=== PATIENT | female | born 1995 | race Caucasian/White ===

== ENCOUNTER 2018-11-28 08:43 | Observation (INO) | payer BC, OTHER ==
[~2018-11-28 08:43] MED LIST: SUCCINYLCHOLINE CHLORIDE INJ 200 MG/10 ML VIAL ONE
[2018-11-28] MEDS ORDERED: MIDAZOLAM 2 MG/2 ML INJ ONE ×2 (09:28→10:46)
[2018-11-28] MEDS ORDERED: FAMOTIDINE INJ/PF 20 MG/2 ML SDV IV ONE (09:30)
[2018-11-28] MEDS ORDERED: METOCLOPRAMIDE HCL INJ/PF 10 MG/2 ML SDV ONE (09:31)
[2018-11-28 09:39] LABS: APPEARANCE,URINE CLOUDY; BILIRUBIN,URINE NEGATIVE (NEGATIVE); COLOR,URINE YELLOW; GLUCOSE, URINE NEGATIVE (NEGATIVE); KETONES,URINE NEGATIVE (NEGATIVE); LEUKOCYTE ESTERASE,URINE NEGATIVE (NEGATIVE); NITRITE,URINE NEGATIVE (NEGATIVE); PROTEIN,URINE NEGATIVE (NEGATIVE); URINE SPECIFIC GRAVITY 1.024; UROBILINOGEN,URINE NEGATIVE mg/dL (<2.0)
[2018-11-28 10:08] LABS: HEMATOCRIT 37.7 % (36.0-47.0); HEMOGLOBIN 13.2 g/dL (12.0-15.5); MEAN CORPUSCULAR HEMOGLOBIN 31.7 pg (27.0-33.4); MEAN CORPUSCULAR HGB CONC 35.1 g/dL (32.0-36.0); MEAN CORPUSCULAR VOLUME 91 fl (80-97); PLATELET COUNT 212 10^3/uL (150-450); RED BLOOD COUNT 4.16 10^6/uL (3.72-5.28); RED CELL DISTRIBUTION WIDTH 13.4 % (11.5-14.0); WHITE BLOOD COUNT 7.1 10^3/uL (4.0-10.5)
[2018-11-28] MEDS ORDERED: MORPHINE SULFATE 10 MG/ML INJ IV PRN (10:11)
[2018-11-28] MEDS ORDERED: PROMETHAZINE HCL INJ 25 MG/1 ML VIAL IV PRN ×2 (10:11)
[2018-11-28] MEDS ORDERED: FENTANYL CITRATE INJ/PF 100 MCG/2 ML AMPUL IV PRN ×3 (10:11)
[2018-11-28] MEDS ORDERED: DIPHENHYDRAMINE HCL 50 MG/ML VIAL IV PRN (10:11)
[2018-11-28] MEDS ORDERED: MEPERIDINE HCL/PF INJ 25 MG/1 ML DISP.SYRIN IV PRN (10:11)
[2018-11-28] MEDS ORDERED: LIDOCAINE 2% INJ-PF (20 MG/ML) 10 ML AMPUL ONE (10:46)
[2018-11-28] MEDS ORDERED: PROMETHAZINE HCL INJ 25 MG/1 ML VIAL ONE (10:46)
[2018-11-28] MEDS ORDERED: FENTANYL CITRATE INJ/PF 100 MCG/2 ML AMPUL ONE (10:46)
[2018-11-28] MEDS ORDERED: DEXAMETHASONE SOD PHOSPHATE INJ 4 MG/1 ML VIAL ONE (10:46)
[2018-11-28] MEDS ORDERED: HYDROMORPHONE HCL INJ/PF 2 MG/ML AMPULE ONE (10:47)
[2018-11-28] MEDS ORDERED: PROPOFOL INJ 200 MG/20 ML VIAL IV ONE (10:47)
[2018-11-28] MEDS ORDERED: ACETAMINOPHEN 1,000 MG/100 ML RTUPB IV ONE (10:47)
[2018-11-28] MEDS ORDERED: ONDANSETRON HCL INJ/PF 4 MG/2 ML SDV ONE (10:47)
[2018-11-28] MEDS ORDERED: MISOPROSTOL 0.2 MG TABLET ONE (11:10)
[2018-11-28] MEDS ORDERED: OXYTOCIN 10 UNIT/ML VIAL ONE ×2 (11:11→11:13)
[2018-11-28] MEDS: MEPERIDINE HCL/PF INJ 25 MG/1 ML DISP.SYRIN ONE ×2 (12:00→12:10)
[2018-11-28] MEDS ORDERED: OXYCODONE-ACETAMINOPHEN 5-325 MG TABLET PO PRN ×2 (12:26→12:27)
[2018-11-28] MEDS ORDERED: MORPHINE SULFATE 10 MG/ML INJ IM PRN (12:26)
[2018-11-28] MEDS ORDERED: IBUPROFEN 800 MG TABLET PO PRN (12:26)
[2018-11-28 12:29] LABS: HEMATOCRIT 34.5 % (36.0-47.0); HEMOGLOBIN 12.1 g/dL (12.0-15.5); MEAN CORPUSCULAR HEMOGLOBIN 31.5 pg (27.0-33.4); MEAN CORPUSCULAR VOLUME 90 fl (80-97); PLATELET COUNT 227 10^3/uL (150-450); RED BLOOD COUNT 3.84 10^6/uL (3.72-5.28); RED CELL DISTRIBUTION WIDTH 13.2 % (11.5-14.0); WHITE BLOOD COUNT 12.6 10^3/uL (4.0-10.5)
--- NOTE | 2018-11-28 12:37 | OPERATIVE REPORT E ---
Operative Report NAME: SLOANE SHAH : 1995 AGE: 23Y DATE OF SURGERY: 11/28/2018 ROOM: PREOPERATIVE DIAGNOSIS: Molar . POSTOPERATIVE DIAGNOSIS: Molar . OPERATION: Suction D and C. SURGEON: BETSEY ROLLE M.D. ANESTHESIA: Meghana Washington M.D. with general. FINDINGS: Uterus sounded to approximately 12.5 cm. Copious amounts of obvious molar tissue. COMPLICATIONS: None. ESTIMATED BLOOD LOSS: 1500 mL. SPECIMENS REMOVED: Products of conception. PROCEDURE IN DETAIL: The patient was taken to the operating room, prepared, and draped in a normal sterile fashion in the dorsal lithotomy position. Under sterile conditions an in-and-out cath was performed of approximately 30 mL of clear urine. A sterile speculum was placed into the vagina and the cervix was grasped on the anterior lip with a single-tooth tenaculum. The uterus was then sounded to approximately 12.5 cm with the uterine sound. We then dilated the cervix up to a 27 [place] and a 12 mm curved curette was used to perform the suction D and C. Canisters needed to be changed as the first canister did fill. Between canister changing I performed a sharp curettage with a large curette and obtained more grape-like tissue that was consistent with a molar . Once the canister was changed the curved curette was then introduced once more and I continued with the suction of the contents. Once I was getting minimal tissue back I then sharply curettaged once more and had a good 360 degrees of grit all the way around. I did suction a couple more times just to ensure that the tissue was completely evacuated from the uterus and sharp curettaged once more, and the tactile sensation was the same with sharp curettage felt all the way around and no further tissue was obtained. The patient did have bleeding that was consistent with a D and C for a molar . Pitocin was used intraoperatively to help with uterine atony and 1000 mcg of Cytotec was placed per rectum to help with this as well. At the conclusion of the procedure the bleeding was very, very minimal from the cervical os and seemed to be more external than internal. The patient tolerated the procedure well. Sponge, lap, and needle counts were correct x2. The patient was taken to recovery in stable condition. DICTATING PHYSICIAN: BETSEY ROLLE M.D. [id number] PHY#: [id number] ID: [id number] JOB#: [id number] ACCT: [id number] cc:BETSEY ROLLE M.D. >
[2018-11-28 13:01] LABS: ALANINE AMINOTRANSFERASE 22 U/L (9-52); ALBUMIN 3.3 g/dL (3.5-5.0); ALKALINE PHOSPHATASE 43 U/L (38-126); ANION GAP 7 (5-19); ASPARTATE AMINO TRANSFERASE 19 U/L (14-36); BILIRUBIN,DIRECT 0.2 mg/dL (0.0-0.4); BILIRUBIN,TOTAL 0.4 mg/dL (0.2-1.3); BLOOD UREA NITROGEN 9 mg/dL (7-20); CALCIUM 8.6 mg/dL (8.4-10.2); CARBON DIOXIDE 20 mmol/L (22-30); CHLORIDE 109 mmol/L (98-107); GLUCOSE 95 mg/dL (75-110); SODIUM 136.4 mmol/L (137-145); TOTAL PROTEIN 5.6 g/dL (6.3-8.2)
[2018-11-28] MEDS ORDERED: LABETALOL HCL INJ 20 MG/4 ML DISP.SYRIN IV ONE (13:08)
[2018-11-28 13:18] LABS: FREE T4 (FREE THYROXINE) 1.81 ng/dL (0.78-2.19)
[2018-11-28 13:32] LABS: THYROID STIMULATING HORMONE 2.88 uIU/mL (0.47-4.68)
--- NOTE | 2018-11-28 17:07 | PDOC CONSULTATION ---
Consultation Consult Date: 11/28/18 Attending physician:: BETSEY ROLLE Consult reason:: tachycardia History of Present Illness Admission Date/PCP: GLENN SOLIS History of Present Illness: SLOANE SHAH is a 23 year old healthy female, no significant past medical history who went for a D&C earlier today for a molar . After procedure, patient's heart rate went up to the 180s reportedly hence this consult. Patient had 1500 cc blood loss during procedure. Rhythm during peak tachycardic event was reportedly sinus tach. She did not drop her blood pressures and was asymptomatic. No desaturation in the OR or PACU. She was given a dose of labetalol and 2L of fluid bolus which significantly improved her heart rate. EKG done in the recovery room was reviewed and shows sinus tachycardia with a HR of [address] T wave or ischemic changes. No EKG changes suggestive of PE as well. She did not have any SOB or chest pain. She is saturating well on room air. Upon encounter, she is very comfortable and heart rate is down to 92 with a blood pressure of 129/59. She is currently getting IV fluids at 75 cc/hr. Past Medical History Cardiac Medical History: Denies: Coronary Artery Disease, Myocardial Infarction, Hypertension Pulmonary Medical History: Denies: Asthma, Bronchitis, Chronic Obstructive Pulmonary Disease (COPD), Pneumonia Neurological Medical History: Denies: Seizures Musculoskeltal Medical History: Denies: Arthritis Hematology: Denies: Anemia Social History Smoking Status: Never Smoker Family History Parental Family History Reviewed: Yes - no premature CAD Children Family History Reviewed: No Sibling(s) Family History Reviewed.: No Medication/Allergy Home Medications: No Home Medications 11/27/18 Allergies/Adverse Reactions: No Known Allergies Allergy (Verified 11/27/18 15:44) Review of Systems All systems: reviewed and no additional remarkable complaints except as stated - as mentioned in HPI Physical Exam Vital Signs: Temp Pulse Resp BP Pulse Ox 98.9 F 109 H 14 120/71 97 11/28/18 11:50 11/28/18 13:35 11/28/18 13:35 11/28/18 13:35 11/28/18 13:35 Intake & Output 11/27/18 11/28/18 11/29/18 06:59 06:59 06:59 Intake Total 1000 Output Total 1460 Balance -460 Weight 142 lb 142 lb General appearance: PRESENT: no acute distress, well-developed, well-nourished Head exam: PRESENT: atraumatic, normocephalic Eye exam: PRESENT: conjunctiva pink, EOMI, PERRLA. ABSENT: scleral icterus Ear exam: PRESENT: normal external ear exam Mouth exam: PRESENT: moist, tongue midline Neck exam: ABSENT: carotid bruit, JVD, lymphadenopathy, thyromegaly Respiratory exam: PRESENT: clear to auscultation ben. ABSENT: rales, rhonchi, wheezes Cardiovascular exam: PRESENT: RRR. ABSENT: diastolic murmur, rubs, systolic murmur Pulses: PRESENT: normal dorsalis pedis pul GI/Abdominal exam: PRESENT: normal bowel sounds, soft. ABSENT: distended, guarding, mass, organolmegaly, rebound, tenderness Rectal exam: PRESENT: deferred Neurological exam: PRESENT: alert, awake, oriented to person, oriented to place, oriented to time, oriented to situation, CN II-XII grossly intact. ABSENT: motor sensory deficit Results Laboratory Results: 11/28/18 12:20 11/28/18 12:20 11/28/18 11/28/18 11/28/18 08:45 09:40 09:40 WBC 7.1 RBC 4.16 Hgb 13.2 Hct 37.7 MCV 91 MCH 31.7 MCHC 35.1 RDW 13.4 Plt Count 212 Sodium Potassium Chloride Carbon Dioxide Anion Gap BUN Creatinine Est GFR ( Amer) Est GFR (Non-Af Amer) Glucose Calcium Total Bilirubin AST ALT Alkaline Phosphatase Total Protein Albumin TSH Free T4 Urine Color YELLOW Urine Appearance CLOUDY Urine pH 7.0 Ur Specific [place] 1.024 Urine Protein NEGATIVE Urine Glucose (UA) NEGATIVE Urine Ketones NEGATIVE Urine Blood NEGATIVE Urine Nitrite NEGATIVE Ur Leukocyte Esterase NEGATIVE Urine WBC (Auto) 5 Urine RBC (Auto) 3 Blood Type O NEGATIVE Antibody Screen NEGATIVE 11/28/18 11/28/18 11/28/18 12:20 12:20 12:20 WBC 12.6 H RBC 3.84 Hgb 12.1 Hct 34.5 L MCV 90 MCH 31.5 MCHC 35.0 RDW 13.2 Plt Count 227 Sodium 136.4 L Potassium 4.0 Chloride 109 H Carbon Dioxide 20 L Anion Gap 7 BUN 9 Creatinine 0.63 Est GFR ( Amer) > 60 Est GFR (Non-Af Amer) > 60 Glucose 95 Calcium 8.6 Total Bilirubin 0.4 AST 19 ALT 22 Alkaline Phosphatase 43 Total Protein 5.6 L Albumin 3.3 L TSH 2.88 Free T4 1.81 Urine Color Urine Appearance Urine pH Ur Specific [place] Urine Protein Urine Glucose (UA) Urine Ketones Urine Blood Urine Nitrite Ur Leukocyte Esterase Urine WBC (Auto) Urine RBC (Auto) Blood Type Antibody Screen Assessment & Plan - Diagnosis (1) Tachycardia Is this a current diagnosis for this admission?: Yes Plan: Likely physiologic from blood loss expected from recent procedure. As mentioned, EKG done in the recovery room was reviewed and shows sinus tachycardia with a HR of [address] T wave or ischemic changes. No EKG changes suggestive of PE as well. She did not have any SOB or chest pain. She is saturating well on room air. Upon encounter, she is very comfortable and heart rate is down to 92 with a blood pressure of 129/59. She denies any acute complaint. Repeat CBC already ordered by Ob-Electrophysiology Technologist service. noted thyroid panel also ordered by primary service and came back normal. Continue IV fluids. Thank you for this consult. Will follow patient if any issue arises. - Time Time Spent: 30 to 50 Minutes
[2018-11-28] MEDS: RINGERS SOLUTION,LACTATED 1,000 ML IV PRN (17:26)
[2018-11-28 18:29] LABS: HEMATOCRIT 31.5 % (36.0-47.0); HEMOGLOBIN 11.3 g/dL (12.0-15.5); MEAN CORPUSCULAR HEMOGLOBIN 32.3 pg (27.0-33.4); MEAN CORPUSCULAR HGB CONC 35.9 g/dL (32.0-36.0); MEAN CORPUSCULAR VOLUME 90 fl (80-97); PLATELET COUNT 211 10^3/uL (150-450); RED CELL DISTRIBUTION WIDTH 13.2 % (11.5-14.0); WHITE BLOOD COUNT 14.5 10^3/uL (4.0-10.5)
[2018-11-28 18:47] LABS: ABSOLUTE LYMPHOCYTES# (MANUAL) 1.2 10^3/uL (0.5-4.7); ABSOLUTE NEUTROPHILS# (MANUAL) 13.3 10^3/uL (1.7-8.2); BASOPHILS % (MANUAL) 0 % (0-2); EOSINOPHILS % (MANUAL) 0 % (0-6); LYMPHOCYTES % (MANUAL) 8 % (13-45); MONOCYTES % (MANUAL) 0 % (3-13); PLATELET COMMENT ADEQUATE; SEGMENTED NEUTROPHILS % (MAN) 92 % (42-78); TOTAL CELLS COUNTED 100
--- NOTE | 2018-11-28 23:09 | EKG REPORT ---
SEVERITY:- OTHERWISE NORMAL ECG - SINUS TACHYCARDIA : Confirmed by: Krista Roy 28-Nov-2018 23:08:40
[2018-11-29] MEDS: RINGERS SOLUTION,LACTATED 1,000 ML IV PRN (05:32)
--- NOTE | 2018-11-29 09:55 | PDOC DISCHARGE SUMMARY ---
General - Admit/Disc Date/PCP Admission Date/Primary Care Provider: GLENN SOLIS Discharge Date: 11/29/18 - Discharge Diagnosis (1) Tachycardia Is this a current diagnosis for this admission?: Yes - Additional Information Home Medications: No Home Medications 11/27/18 History of Present Illness Patient complains of: post evacuation of molar pt had tachycardis and was admitted for observation History of Present Illness: SLOANE SHAH is a 23 year old female Hospital Course Hospital Course: pt seen by hospitalist and has a benign course of observation.. Tachycardia resolved and no further work up or follow up for this is needed at this time Physical Exam - Physical Exam Vital Signs: Temp Pulse Resp BP Pulse Ox 98.1 F 75 16 125/73 100 11/29/18 07:52 11/29/18 07:52 11/29/18 07:52 11/29/18 07:52 11/29/18 07:52 Intake & Output 11/28/18 11/29/18 11/30/18 06:59 06:59 06:59 Intake Total 3776 Output Total 1960 Balance 1816 Weight 64.41 kg 64.4 kg General appearance: PRESENT: no acute distress Respiratory exam: PRESENT: clear to auscultation ben Cardiovascular exam: PRESENT: RRR Result Laboratory Results: 11/28/18 18:00 11/28/18 12:20 11/28/18 11/28/18 11/28/18 09:40 09:40 12:20 WBC 7.1 12.6 H RBC 4.16 3.84 Hgb 13.2 12.1 Hct 37.7 34.5 L MCV 91 90 MCH 31.7 31.5 MCHC 35.1 35.0 RDW 13.4 13.2 Plt Count 212 227 Seg Neutrophils % Lymphocytes % Monocytes % Eosinophils % Basophils % Absolute Neutrophils Absolute Lymphocytes Absolute Monocytes Absolute Eosinophils Absolute Basophils Sodium Potassium Chloride Carbon Dioxide Anion Gap BUN Creatinine Est GFR ( Amer) Est GFR (Non-Af Amer) Glucose Calcium Total Bilirubin AST ALT Alkaline Phosphatase Total Protein Albumin TSH Free T4 Free T3 pg/mL Blood Type O NEGATIVE Antibody Screen NEGATIVE 11/28/18 11/28/18 11/28/18 12:20 12:20 12:20 WBC RBC Hgb Hct MCV MCH MCHC RDW Plt Count Seg Neutrophils % Lymphocytes % Monocytes % Eosinophils % Basophils % Absolute Neutrophils Absolute Lymphocytes Absolute Monocytes Absolute Eosinophils Absolute Basophils Sodium 136.4 L Potassium 4.0 Chloride 109 H Carbon Dioxide 20 L Anion Gap 7 BUN 9 Creatinine 0.63 Est GFR ( Amer) > 60 Est GFR (Non-Af Amer) > 60 Glucose 95 Calcium 8.6 Total Bilirubin 0.4 AST 19 ALT 22 Alkaline Phosphatase 43 Total Protein 5.6 L Albumin 3.3 L TSH 2.88 Free T4 1.81 Free T3 pg/mL 4.73 Blood Type Antibody Screen 11/28/18 18:00 WBC 14.5 H RBC 3.50 L Hgb 11.3 L Hct 31.5 L MCV 90 MCH 32.3 MCHC 35.9 RDW 13.2 Plt Count 211 Seg Neutrophils % Not Reportable Lymphocytes % Not Reportable Monocytes % Not Reportable Eosinophils % Not Reportable Basophils % Not Reportable Absolute Neutrophils Not Reportable Absolute Lymphocytes Not Reportable Absolute Monocytes Not Reportable Absolute Eosinophils Not Reportable Absolute Basophils Not Reportable Sodium Potassium Chloride Carbon Dioxide Anion Gap BUN Creatinine Est GFR ( Amer) Est GFR (Non-Af Amer) Glucose Calcium Total Bilirubin AST ALT Alkaline Phosphatase Total Protein Albumin TSH Free T4 Free T3 pg/mL Blood Type Antibody Screen Plan Discharge Plan: d/c f/u 2weks or prn Time Spent: Less than 30 Minutes
[2018-11-29 10:41] VITALS: BP 114/57
--- NOTE | 2018-11-29 15:59 | Progress Note ---
Provider Note Provider Note: Patient seen today and re-evaluated. No recurrence of tachycardia. She denies any acute complaint. Cleared for discharge from hospitalist point of view.
== END 2018-11-29 11:50 | disposition home or self-care (01) ==
LOC: OROUT 08:43 → EDSTATUS 10:45 → 4N 16:41 → OROUT 16:41 → 4N 16:43
PROVIDERS: ADMIT Obstetrics & Gynecology; ATTEND Obstetrics & Gynecology
PROC: 10D07Z8 Extraction of Products of Conception, Other, Via Natural or Artificial Opening (ICD-10-PCS; principal; 2018-11-28 10:45)
DX: O01.0 Classical hydatidiform mole (principal); I97.191 Other postprocedural cardiac functional disturbances following other surgery; R00.0 Tachycardia, unspecified; Y83.8 Other surgical procedures as the cause of abnormal reaction of the patient, or of later complication, without mention of misadventure at the time of the procedure
CPT/HCPCS: 86900; 86901; 36415; 84439; 86850; 84443; 85025; 85027; 80053; 81001; 84481; 88305 ×2; 93005; 93010; 59812; G0378 ×2; J2790; J2250; J1100; J3010; J3490 ×2; J2175; J2765; J2590; J2550; J0330; J2405; J7120 ×2; J2704; S0028; J0131; 1965; J1170